=== PATIENT | male | born 1995 | race Caucasian/White ===

== ENCOUNTER 2024-03-03 21:01 | Emergency (ER) | payer OTHER, SELFPAY ==
--- NOTE | 2024-03-03 21:04 | ECG_ITS ---
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
[2024-03-03 21:08] VITALS: BP 137/88; PULSE 79; RESP 17; TEMP 36.6; O2SAT 100; BMI 33.0
[2024-03-03 21:53] LABS: Basophils % 0.4 %; Eosinophils % 0.6 %; Hematocrit 44.8 % (37-53); Lymphocytes # 1.2 10^3/uL (0.8-4.8); Lymphocytes % 23.2 %; Mean Corpuscular HGB Conc 34.4 g/dL (30-55); Mean Corpuscular Hemoglobin 28.7 pg (27-33); Mean Corpuscular Volume 83.6 fl (82-101); Mean Platelet Volume 9.8 fL (7.4-10.4); Monocytes # 0.4 10^3/uL (0.2-0.9); Monocytes % 7.7 %; Neutrophils % 67.9 %; Nucleated Red Blood Cells % 0 %; Platelet Count 283 10^3/cmm (157-399); Red Blood Count 5.36 10^6/uL (3.85-5.65); Red Cell Distribution Width 11.8 % (12.1-15.1)
[2024-03-03 22:16] VITALS: BP 150/102; PULSE 76; RESP 18; O2SAT 97
--- NOTE | 2024-03-03 22:16 | CTR_ITS ---
PROCEDURE INFORMATION: Exam: CT Neck With Contrast Exam date and time: 03/03/2024 10:34 PM Age: 29 years old Clinical indication: Dysphagia / difficulty swallowing; Additional info: Bolus sensation, dysphagia TECHNIQUE: Imaging protocol: Computed tomography of the neck with contrast. Radiation optimization: All CT scans at this facility use at least one of these dose optimization techniques: automated exposure control; mA and/or kV adjustment per patient size (includes targeted exams where dose is matched to clinical indication); or iterative reconstruction. Contrast material: OMNI 350; Contrast volume: 100 ml; Contrast route: INTRAVENOUS (IV); COMPARISON: CT chest w con* [id number] 03/03/2024 10:34 PM RADIATION DOSE METRICS: Total DLP (mGy-cm): 358.4 FINDINGS: Salivary glands: Normal. Glands are normal in size. Pharynx: Unremarkable. No significant tonsillar enlargement. Prevertebral and retropharyngeal spaces: Unremarkable. Larynx: Unremarkable. Epiglottis is normal. Thyroid: Normal. No enlarged or calcified nodules. Trachea: Visualized trachea is unremarkable. Lungs: Unremarkable as visualized. Lymph nodes: Unremarkable. No lymphadenopathy. Bones/joints: Unremarkable. No acute fracture. Soft tissues: Unremarkable. No significant soft tissue swelling. CT/CT neck w con* [id number] IMPRESSION: No acute findings.
--- NOTE | 2024-03-03 22:16 | CTR_ITS ---
PROCEDURE INFORMATION: Exam: CT Chest With Contrast; Diagnostic Exam date and time: 03/03/2024 10:34 PM Age: 29 years old Clinical indication: Dyspnea; Additional info: Bolus sensation, dysphagia TECHNIQUE: Imaging protocol: Diagnostic computed tomography of the chest with contrast. Radiation optimization: All CT scans at this facility use at least one of these dose optimization techniques: automated exposure control; mA and/or kV adjustment per patient size (includes targeted exams where dose is matched to clinical indication); or iterative reconstruction. Contrast material: OMNI 350; Contrast volume: 100 ml; Contrast route: INTRAVENOUS (IV); COMPARISON: CT neck w con* [id number] 03/03/2024 10:34 PM RADIATION DOSE METRICS: Total DLP (mGy-cm): 633.4 FINDINGS: Lungs: Unremarkable. No consolidation. No masses. Pleural spaces: Unremarkable. No pneumothorax. No pleural effusion. Heart: Unremarkable. No cardiomegaly. No pericardial effusion. Lymph nodes: Unremarkable. No enlarged lymph nodes. Vasculature: Unremarkable. No aortic aneurysm. Bones/joints: Unremarkable. No acute fracture. Soft tissues: Unremarkable. CT/CT chest w con* [id number] IMPRESSION: No acute findings.
[2024-03-03 22:18] LABS: D Dimer <= 0.27 ug/mLFEU (0-0.59)
--- NOTE | 2024-03-03 22:21 | ED_ITS ---
HPI - Chest Pain 2 General: Chief Complaint: Chest Pain Stated Complaint: chest pain, under right arm pain Time Seen by Provider: 03/03/24 21:03 History of Present Illness: Patient presents to the ER with chest pain shortness of breath. Sometimes the pain radiates to his back. It is right-sided. Sometimes radiates to his right arm. It is he says it feels like he just cannot catch my breath sometimes. He also reports difficulty swallowing liquid or food. Feels like he gets home and caught in his throat. This been going on for about 4 days. Patient is not ate more than a couple bites of food during this time. Patient was recently seen up at [facility] they worked him up from a chest pain perspective told him he was okay and discharged him. Patient still having the same problems. Related Data Allergies Allergy/AdvReac Type Severity Reaction Status Date / Time fentanyl Allergy Unknown Verified 03/03/24 21:15 Review of Systems 2 General: Reports: 10 or more systems reviewed and unremarkable except in HPI and below Physical Exam 2 Const: COMMON NORMALS: no acute distress, average body habitus, patient oriented x3, no limitations, healthy appearing, alert and well nourished HENMT: COMMON NORMALS: normocephalic, atraumatic, hearing grossly normal bilaterally, external ears normal, Normal external nose present and moist oral mucous membranes HEAD & SCALP: normocephalic and atraumatic NOSE: Normal external nose present EXTERNAL EAR: Yes external ears normal Neck/C-Spine: COMMON NORMALS: full ROM, no lymphadenopathy, supple, no meningeal signs, no JVD and Thyroid normal THYROID: Thyroid normal Chest: COMMONS NORMALS: normal inspection of the chest and normal palpation of entire chest wall Resp: COMMON NORMALS: normal respiratory effort, No retractions, No use of accessory muscles and clear to auscultation bilaterally AUSCULTATION: clear to auscultation bilaterally Cardio: COMMON NORMALS: no JVD, regular rate, regular rhythm, S1 normal heart sound present, S2 normal heart sound present, No gallops present (Cardio), No clicks present (Cardio), No murmurs present (Cardio) and No rub (Cardio) R ATE: regular rate RHYTHM: regular rhythm HEART SOUNDS: S1 normal heart sound present and S2 normal heart sound present GI: COMMON NORMALS: Normal to inspection, nondistended, normoactive bowel sounds present, Soft to palpation, non-tender, No hepatosplenomegaly present and no masses PALPATION: Yes Soft to palpation and Yes No hepatosplenomegaly present Neuro: COMMON NORMALS: patient oriented x3 SENSORIUM/ORIENTATION: Yes alert MENINGEAL SIGNS: Yes no meningeal signs Course 2 Vital Signs: Vital signs: Vital Signs Temperature 98 F 03/03/24 21:08 Pulse Rate 70 03/04/24 00:11 Respiratory Rate 16 03/04/24 00:11 Blood Pressure 134/81 03/04/24 00:11 Pulse Oximetry 95 03/04/24 00:11 Oxygen Delivery Me thod Room Air 03/04/24 00:11 MDM - Chest Pain Medical Decision Making Patient had lab work, EKGs, CT scan with contrast of the neck and chest, all of which were essentially benign. These results were discussed with the patient. Patient be discharged home to follow-up with PCP for further evaluation testing. Medical Records I reviewed the patient's medical records. Lab Data I reviewed the patient's lab results. 03/03/24 21:42 03/03/24 21:[address] 03/03/24 22:16 IMPRESSION: No acute findings. Neck CT 03/03/24 22:16 IMPRESSION: No acute findings. Laboratory Results WBC 5.30 10^3/uL (3.29-11.43) 03/03/24 21:42 RBC 5.36 10^6/uL (3.85-5.65) 03/03/24 21:42 Hgb 15.40 g/dL (11.27-16.99) 03/03/24 21:42 Hct 44.8 % (37-53) 03/03/24 21:42 MCV 83.6 fl (82-101) 03/03/24 21:42 MCH 28.7 pg (27-33) 03/03/24 21:42 MCHC 34.4 g/dL (30-55) 03/03/24 21:42 RDW 11.8 % (12.1-15.1) L 03/03/24 21:42 Plt Count 283 10^3/cmm (157-399) 03/03/24 21:42 MPV 9.8 fL (7.4-10.4) 03/03/24 21:42 Neut % (Auto) 67.9 % 03/03/24 21:42 Lymph % (Auto) 23.2 % 03/03/24 21:42 [place] % (Auto) 7.7 % 03/03/24 21:42 Eos % (Auto) 0.6 % 03/03/24 21:42 Baso % (Auto) 0.4 % 03/03/24 21:42 Neut # (Auto) 3.60 10^3/uL (1.8-7.7) 03/03/24 21:42 Lymph # (Auto) 1.2 10^3/uL (0.8-4.8) 03/03/24 21:42 [place] # (Auto) 0.4 10^3/uL (0.2-0.9) 03/03/24 21:42 Eos # (Auto) 0.0 10^3/uL (0.0-0.8) 03/03/24 21:42 Baso # (Auto) 0.0 10^3/uL (0.0-0.1) 03/03/24 21: Nucleated RBC % (auto) 0 % 03/03/24 21: Nucleated RBCs # 0.0 /100WBC 03/03/24 21:42 D-Dimer <= 0.27 ug/mLFEU (0-0.59) 03/03/24 21:42 Sodium 137 mmol/L (136-145) 03/03/24 21:42 Potassium 4.9 mmol/L (3.5-5.1) 03/03/24 21:42 Chloride 101 mmol/L (98-107) 03/03/24 21:42 Carbon Dioxide 25 mmol/L (22-29) 03/03/24 21:42 Anion Gap 15.9 (5-19) 03/03/24 21:42 BUN 14 mg/dL (6-20) 03/03/24 21:42 Creatinine 0.9 mg/dL (0.7-1.2) 03/03/24 21:42 GFR Calculation 99.1 mL/min (90-130) 03/03/24 21:42 Glucose 90 mg/dL (65-115) 03/03/24 21:42 Calculated Osmolality 284 mOsm/kg (285-295) L 03/03/24 21:42 Calcium 10.1 mg/dL (8.5-10.5) 03/03/24 21:42 Total Bilirubin 0.5 mg/dL (0.15-1.2) 03/03/24 21:42 AST 16 U/L (0-40) 03/03/24 21:42 ALT 25 U/L (0-41) 03/03/24 21:42 Alkaline Phosphatase 84 U/L (40-130) 03/03/24 21:42 Troponin T Baseline < 6 ng/L (0-15) 03/03/24 21:42 Troponin T 120 Minute 6.00 ng/L (0-15) 03/03/24 23:44 Delta Troponin T 0.93567 ABS# (0-10) 03/03/24 23:44 Total Protein 7.7 g/dL (6.6-8.7) 03/03/24 21:42 Albumin 5.1 g/dL (3.5-5.2) 03/03/24 21:42 Globulin 2.6 g/dL (1.3-4.6) 03/03/24 21:42 All radiology interpretation(s) finalized by discharge Discharge Plan Discharge Patient Disposition: Home Clinical Impression: Atypical chest pain, Dysphagia Condition: Stable Discharge Orders: Discharge ED (Routine); Ordered 03/04/24 Ordered By: Juliano Chiu Patient Instructions: Chest Pain - Noncardiac, Dysphagia Activity Restrictions/Additional Instructions: Your evaluation ER did not show any acute cause of your symptomatology. Your chest pain is felt to be noncardiac in nature. The CT scan of your neck and chest did not show any strictures or masses. You may benefit from an EGD for further evaluation treatment. Please follow-up with your family practice physician within the next 7 days to discuss this. Coding Level of Care Code ED Manager Garden for Feliz Kim
[2024-03-03 22:24] LABS: Troponin(5th) Baseline < 6 ng/L (0-15)
[2024-03-03] MEDS: LORazepam 2 mg/mL INJ 1 mL IVP (22:28)
[2024-03-03 22:32] LABS: Alanine Aminotransferase 25 U/L (0-41); Albumin Level 5.1 g/dL (3.5-5.2); Alkaline Phosphatase 84 U/L (40-130); Anion Gap 15.9 (5-19); Aspartate Amino Transferase 16 U/L (0-40); Blood Urea Nitrogen 14 mg/dL (6-20); Calcium 10.1 mg/dL (8.5-10.5); Carbon Dioxide 25 mmol/L (22-29); Chloride 101 mmol/L (98-107); Creatinine Clr Calc Pharmacy 145.1905; Globulin 2.6 g/dL (1.3-4.6); Glomerular Filtration Rate 99.1 mL/min (90-130); Glucose 90 mg/dL (65-115); Osmolality Calculated 284 mOsm/kg (285-295); Potassium 4.9 mmol/L (3.5-5.1); Sodium 137 mmol/L (136-145); Total Bilirubin 0.5 mg/dL (0.15-1.2); Total Protein 7.7 g/dL (6.6-8.7)
[2024-03-03 22:47] VITALS: BP 134/87; PULSE 80; RESP 14; O2SAT 97
[2024-03-03] MEDS: iohexol 350 mg/mL 500 mL Btl (per mL) IV (22:56)
[2024-03-03 23:41] VITALS: BP 147/88; PULSE 71; RESP 18; O2SAT 96
[2024-03-04 00:08] LABS: Troponin 5 2HR Delta 0.00001 ABS# (0-10)
[2024-03-04 00:11] VITALS: BP 134/81; PULSE 70; RESP 16; O2SAT 95
[2024-03-04 00:14] VITALS: BP 134/81; PULSE 65; RESP 16; O2SAT 95
== END 2024-03-04 00:23 | disposition home or self-care (01) ==
PROVIDERS: Emergency Provider Emergency Medicine
DX: R07.89 Other chest pain (principal); R13.10 Dysphagia, unspecified
CPT/HCPCS: 36415; 70491; 71260; 80053; 84484; 85025; 85378; 93005; 96374; 99285; J2060

== ENCOUNTER 2024-03-24 23:34 | Emergency (ER) | payer OTHER, SELFPAY ==
[2024-03-24 23:39] VITALS: BP 136/94; PULSE 71; RESP 14; TEMP 37; O2SAT 98
--- NOTE | 2024-03-24 23:45 | ECG_ITS ---
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 Measurements Intervals [place] Rate: 72 P: 35 WI: 159 QRS: 34 QRSD: 100 T: 12 QT: 372 QTc: 409 Interpretive Statements SINUS RHYTHM Compared to ECG 03/03/2024 21:04:57 T-wave abnormality no longer present Electronically Signed On 03-26-2024 22:00:56 FARMWORKER GRAIN by Jefry Lai M.D. [id number]
== END 2024-03-25 00:52 | disposition left against medical advice (07) ==
LOC: ER 23:40
PROVIDERS: Emergency Provider Family Medicine
DX: Z53.21 Procedure and treatment not carried out due to patient leaving prior to being seen by health care provider (principal)
CPT/HCPCS: 93005

== ENCOUNTER 2024-04-06 05:32 | Emergency (ER) | payer OTHER, SELFPAY ==
[2024-04-06 05:36] VITALS: BP 149/90; PULSE 62; RESP 16; TEMP 37; O2SAT 97; BMI 31.5
--- NOTE | 2024-04-06 05:41 | ED_ITS ---
HPI - General Adult General: Chief complaint: Airway/Esophagus Foreign Body Stated complaint: Something Stuck In Throat Time Seen by Provider: 04/06/24 05:41 Source: patient Mode of arrival: ambulatory Limitations: no limitations History of Present Illness: 29-year-old male states that he was eati ng a pork chop roughly an hour ago he states he feels like he has food stuck in esophagus. He states he is not really able to drink any liquids and states he has a foreign body sensation. He denies having any esophageal food boluses in the past denies any history of strictures she denies any vomiting. States he has been having difficulty swallowing and ingesting foods over the last few months Associated symptoms: Deny chest pain, dyspnea, headache(s), nausea, rash or vomiting Related Data Allergies Allergy/AdvReac Type Severity Reaction Status Date / Time fentanyl Allergy Unknown Verified 03/03/24 21:15 Review of Systems Const: Denies: fever(s), chills, body aches or change in appetite ENMT: Denies: throat pain or dental pain Card: Denies: chest pain Resp: Denies: dyspnea GI: Denies: abdominal pain, nausea, vomiting or diarrhea Musc: Denies: neck pain or back pain Skin/Breast: Denies: rash Neuro: Denies: headache(s) Physical Exam Const: COMMON NORMALS: no acute distress, patient oriented x3 and healthy appearing HENMT: COMMON NORMALS: normocephalic and atraumatic HEAD & SCALP: normocephalic and atraumatic Eye: COMMON NORMALS: conjunctivae normal CONJUNCTIVA: Yes conjunctivae normal Neck/C-Spine: COMMON NORMALS: full ROM and supple Chest: COMMONS NORMALS: normal inspection of the chest Resp: COMMON NORMALS: normal respiratory effort, No retractions, No use of accessory muscles and clear to auscultation bilaterally AUSCULTATION: clear to auscultation bilaterally Cardio: COMMON NORMALS: regular rate, regular rhythm and No murmurs present (Cardio) RATE: regular rate RHYTHM: regular rhythm GI: COMMON NORMALS: non-tender Extremity: COMMON NORMALS: normal to inspection and full ROM Neuro: COMMON NORMALS: patient oriented x3, moves all extremities and no focal motor deficits Psych: COMMON NORMALS: mental status grossly normal, Normal thought process present and cooperative THOUGHT PROCESS: Normal thought process present Skin: COMMON NORMALS: no rashes or lesions noted and no wounds GENERAL SKIN EXAM: no rashes or lesions noted Course Vital Signs: Vital signs: Vital Signs Temperature 98.6 F 04/06/24 05:36 Pulse Rate 62 04/06/24 05:36 Respiratory Rate 16 04/06/24 05:36 Blood Pressure 149/90 04/06/24 05:36 Pulse Oximetry 97 04/06/24 05:36 Oxygen Delivery Me thod Room Air 04/06/24 05:36 MDM - General Adult Medical Decision Making Patient presents here with dysphagia, food bolus sensation. He is able to drink water and a Coke here and feels improved. He has no signs of food impaction. He is handling secretions well chest x-ray is normal we will get him follow-up with surgery likely needs an EGD in the future. Medical Records I reviewed the patient's medical records. All radiology interpretation(s) finalized by discharge ED provider radiology interpretation(s): cxr no acute abnormality Discharge Plan Discharge Patient Disposition: Home Clinical Impression: Difficulty in swallowing Condition: Stable Discharge Orders: Discharge ED (Routine); Ordered 04/06/24 Ordered By: Taniya Salcedo Referrals: Buck Prakash MD [Physician] - 4-7 days Discharge Diet: Advance as tolerated Discharge Activity: Resume usual activity Patient Instructions: Esophageal Foreign Body (ED), Dysphagia (ED) Print Language: Slovak Coding Level of Care Code ED Deputy County Clerk for Feliz Kim
--- NOTE | 2024-04-06 05:58 | XRR_ITS ---
PROCEDURE INFORMATION: Exam: XR Chest Exam date and time: 04/06/2024 5:58 AM Age: 29 years old Clinical indication: Other: Dysphagia with possible food bolus. C/O dysphagia with feeling of something stuck in esophagus since eating dinner yesterday evening. TECHNIQUE: Imaging protocol: Radiologic exam of the chest. Views: 1 view. COMPARISON: CT chest w con* [id number] 03/03/2024 10:34 PM FINDINGS: Lungs: Hypoinflation with bronchovascular crowding. No focal consolidation. Pleural spaces: Unremarkable. No pleural effusion. No pneumothorax. Heart/Mediastinum: No cardiomegaly. Query hiatal hernia, although this is not visualized on recent CT. Bones/joints: Unremarkable. XR/XR chest 1V portable [id number] IMPRESSION: No acute cardiopulmonary findings. Query hiatal hernia, although this is not visualized on recent CT.
[2024-04-06 06:07] VITALS: BP 144/89; PULSE 68; O2SAT 99
== END 2024-04-06 06:08 | disposition home or self-care (01) ==
PROVIDERS: Emergency Provider Emergency Medicine
DX: R13.10 Dysphagia, unspecified (principal)
CPT/HCPCS: 71045; 99283

== ENCOUNTER 2024-04-06 19:44 | Emergency (ER) | payer OTHER, SELFPAY ==
[2024-04-06 19:52] VITALS: BP 140/88; PULSE 67; RESP 18; TEMP 36.7; O2SAT 100; BMI 31.5
--- NOTE | 2024-04-06 20:28 | CTR_ITS ---
PROCEDURE INFORMATION: Exam: CT Neck With Contrast Exam date and time: 04/06/2024 9:07 PM Age: 29 years old Clinical indication: Dysphagia / difficulty swallowing; Additional info: Worsening dysphagia, possible food bolus TECHNIQUE: Imaging protocol: Computed tomography of the neck with contrast. Radiation optimization: All CT scans at this facility use at least one of these dose optimization techniques: automated exposure control; mA and/or kV adjustment per patient size (includes targeted exams where dose is matched to clinical indication); or iterative reconstruction. Contrast material: OMNIPAQUE E350; Contrast volume: 100 ml; Contrast route: INTRAVENOUS (IV); COMPARISON: CT neck w con* [id number] 03/03/2024 10:34 PM RADIATION DOSE METRICS: Total DLP (mGy-cm): 361.76 FINDINGS: Paranasal sinuses: The paranasal sinuses are clear. Mastoid air cells: The mastoid air cells are clear. Salivary glands: Normal. Glands are normal in size. Teeth: Evaluation of the oral cavity is limited by streak artifact from dental hardware. Pharynx: Unremarkable. No significant tonsillar enlargement. Larynx: Unremarkable. Epiglottis is normal. Thyroid: Normal. No enlarged or calcified nodules. Trachea: Visualized trachea is unremarkable. Lungs: Unremarkable as visualized. Lymph nodes: Unremarkable. No lymphadenopathy. Bones/joints: Unremarkable. No acute fracture. Soft tissues: Unremarkable. No significant soft tissue swelling. CT/CT neck w con* [id number] IMPRESSION: No acute abnormality.
--- NOTE | 2024-04-06 20:31 | W.ED.GENADLT ---
HPI - General Adult General: Chief complaint: Airway/Esophagus Foreign Body Stated complaint: Dizzy\Has something in Throat Time Seen by Provider: 04/06/24 20:24 History of Present Illness: Patient returns to the ER with same complaint of feels like something is stuck in his throat. Patient was seen earlier this morning was referred to surgery after having lab work and imaging performed. Patient was able to drink water and soda earlier and felt like it was getting better. Patient stated that it feels like it is getting worse now feels like he has a rock stuck in his throat and water has to go around it to make its way by. Patient does not have any problems with his secretions. Related Data Allergies Allergy/AdvReac Type Severity Reaction Status Date / Time fentanyl Allergy Unknown Verified 03/03/24 21:15 Review of Systems General: Reports: 10 or more systems reviewed and unremarkable except in HPI and below Physical Exam Const: COMMON NORMALS: no acute distress, average body habitus, patient oriented x3, no limitations, healthy appearing, alert and well nourished HENMT: COMMON NORMALS: normocephalic, hearing grossly normal bilaterally, external ears normal, Normal external nose present, moist oral mucous membranes and oropharynx normal HEAD & SCALP: normocephalic NOSE: Normal external nose present EXTERNAL EAR: Yes external ears normal Neck/C-Spine: COMMON NORMALS: full ROM, no lymphadenopathy, supple, no meningeal signs, no JVD and Thyroid normal THYROID: Thyroid normal Chest: COMMONS NORMALS: normal inspection of the chest and normal palpation of entire chest wall Resp: COMMON NORMALS: normal respiratory effort, No retractions, No use of accessory muscles and clear to auscultation bilaterally AUSCULTATION: clear to auscultation bilaterally Cardio: COMMON NORMALS: no JVD, regular rate, regular rhythm, S1 normal heart sound present, S2 normal heart sound present, No gallops present (Cardio), No clicks present (Cardio), No murmurs present (Cardio) and No rub (Cardio) RATE: regular rate RHYTHM: regular rhythm HEART SOUNDS: S1 normal heart sound present and S2 normal heart sound present GI: COMMON NORMALS: Normal to inspection, nondistended, normoactive bowel sounds present, Soft to palpation, non-tender, No hepatosplenomegaly present and no masses PALPATION: Yes Soft to palpation and Yes No hepatosplenomegaly present Neuro: COMMON NORMALS: patient oriented x3 SENSORIUM/ORIENTATION: Yes alert MENINGEAL SIGNS: Yes no meningeal signs Course Vital Signs: Vital signs: Vital Signs Temperature 98.0 F 04/06/24 19:52 Pulse Rate 60 04/06/24 21:00 Respiratory Rate 17 04/06/24 20:33 Blood Pressure 125/77 04/06/24 21:00 Pulse Oximetry 98 04/06/24 21:00 Oxygen Delivery Me thod Room Air 04/06/24 21:00 MDM - General Adult Medical Decision Making Contrasted CT scan of the neck did not show any acute abnormality. This was discussed with the patient. Patient will be discharged and referred back to his PCP. Medical Records I reviewed the patient's medical records. Lab Data I reviewed the patient's lab results. Radiology Impressions Neck CT 04/06/24 20:28 IMPRESSION: No acute abnormality. All radiology interpretation(s) finalized by discharge Discharge Plan Discharge Patient Disposition: Home Clinical Impression: Globus sensation Condition: Stable Discharge Orders: Discharge ED (Routine); Ordered 04/06/24 Ordered By: Juliano Chiu Patient Instructions: Dysphagia Activity Restrictions/Additional Instructions: The CT scan of your neck with contrast did not show any acute abnormality. Please continue to follow-up with your primary care doctor and the surgeon for possible EGD as recommended by the previous ER visit. Print Language: Icelandic Coding Level of Care Code ED Civil Engineering Designer for Feliz Kim
[2024-04-06 20:33] VITALS: BP 157/95; PULSE 61; RESP 17; O2SAT 98
[2024-04-06 21:00] VITALS: BP 125/77; PULSE 60; O2SAT 98
[2024-04-06] MEDS: iohexol 350 mg/mL 500 mL Btl (per mL) IV (21:09)
[2024-04-06 21:30] VITALS: BP 124/74; PULSE 61; RESP 17; O2SAT 99
[2024-04-06 22:00] VITALS: BP 129/83; PULSE 57; O2SAT 99
[2024-04-06 22:37] VITALS: BP 129/83; PULSE 70; O2SAT 100
== END 2024-04-06 22:23 | disposition home or self-care (01) ==
PROVIDERS: Emergency Provider Emergency Medicine
DX: R09.A2 Foreign body sensation, throat (principal)
CPT/HCPCS: 36415; 70491; 99285

== ENCOUNTER 2024-04-09 10:47 | Day surgery (SDC) | payer OTHER, SELFPAY ==
[2024-04-09 11:09] VITALS: BMI 31.5
[2024-04-09 11:10] VITALS: BP 142/82; PULSE 66; RESP 18; TEMP 36.1; O2SAT 97
--- NOTE | 2024-04-09 11:21 | P.HPUD_ITS ---
Surgery/Procedure H&P Update DATE OF PROCEDURE: April 09, 2024 DATE H&P PERFORMED: 04/07/24 H&P UPDATE INFORMATION: I have reviewed H&P completed within last 30 days, I have examined patient prior to procedure, No changes to prior documentation and H&P is in [facility] on date indicated PLANNED PROCEDURE: Operation Date: 04/09/24 12:25 Proposed Procedures p EGD/BALLOON DILATION(Not Applicable) - Mahad Morris MD
--- NOTE | 2024-04-09 12:53 | ANES.PREANE2 ---
Pre-Anesthetic Assessment Height/Weight: Height 1.78 m Weight 99.79 kg Preop Diagnosis: dysphagia Operation Date: 04/09/24 12:25 Proposed Procedures p EGD/BALLOON DILATION(Not Applicable) - Mahad Morris MD Familial anesthetic complications: none Was Beta Jodie taken within 24 hours: N/A Was Clonidine taken within 24 hours: N/A Last intake: Intake Last Liquid Date 04/08/24 Last Liquid Time 23:50 Last Solid Date 04/08/24 Last Solid Time 22:00 Social Tobacco and No alcohol had a callie nicotine pouch at 11. will wait until 1300 to procede. Exam alert and oriented x 3 Airway Submandibular: within normal limits Cervical ROM: within normal limits Mallampati: Class I Dentition: full Pulmonary None reported CV/HEM pt states he has 24/7 chest pain, rates it at 1/10. no other symptoms, multiple EKGs, has stress test scheduled. None reported Hepatic None reported GI Gastroesophageal Reflux Disease ( i have no idea ) Metabolic None reported Musc/skel None reported Neuropsych None reported Anesthetic Plan ASA status: 2 Anesthesia: Anesthesia Evaluation and MAC Medications/Allergies Home Medications ?Medication ?Instructions ?Recorded ?Confirmed ?Last Taken ?Type No Known Home Medications 04/07/24 04/09/24 Unknown History Allergies Allergy/AdvReac Type Severity Reaction Status Date / Time fentanyl Allergy Unknown Verified 04/07/24 08:54 [facility] Anesthesia Social History (Updated 04/07/24 @ 08:59 by ROBBIE Sena) Smoking and tobacco/nicotine status: current every day tobacco/nicotine user (chewing tob) smokeless tobacco Smokeless tobacco user: chewing tobacco Alcohol intake: current Alcohol intake frequency: few times a month Data Anesthesia Cardiac Studies: No Data to Display
--- NOTE | 2024-04-09 13:05 | PM.MISC ---
Miscellaneous Note Purpose of Documentation: Update on patient care Note: Patient has decided that he will not like to proceed with EGD and possible balloon dilation and is he does not want to receive any kind of anesthesia. I have informed him that we will remain available to do the procedure in the future.
--- NOTE | 2024-04-09 13:09 | ANES.PROC ---
Anesthesia Procedures Procedure/Date: 04/09/24 EGD aborted in procedure room by patient, patient didnt want to be put to sleep.
--- NOTE | 2024-04-09 13:15 | ANE.PACU2 ---
Inpatient post-anesthesia follow up: Airway intact: Yes Vital signs: Temperature 97.0 F Pulse Rate 66 Respiratory Rate 18 Blood Pressure 142/82 Pulse Oximetry 97 Oxygen Delivery Me thod Room Air Oxygen Flow Rate Fraction of Inspir ed Oxygen Hydration adequate: Yes Nausea and vomiting: No Pain level: 1 Mental status: Baseline
--- NOTE | 2024-04-09 13:16 | PC.NURSE ---
1302-PT DECIDED AFTER HE WAS IN THE PROCEDURE ROOM AND HOOKED UP TO EVERYTHING THAT HE DID NOT WANT TO BE PUT TO SLEEP. WE HAD DONE THE TIME OUT AND THE BITE BLOCK AND O2 WERE APPLIED. THEN THE PT SAID THAT HE COULD NOT DO IT.
--- NOTE | 2024-04-09 14:00 | SUR.PHASEII ---
1315-Pt back into room that he got ready in after deciding that he did not want to be put to sleep in the procedure room. I took his IV out. There were no discharge instructions given by the physician, although Dr Morris did talk to him about a swallow study and said that he could see an ENT physician. Pt left at 1315 with spouse.
== END 2024-04-09 13:15 | disposition home or self-care (01) ==
PROVIDERS: Visit Provider Surgery
DX: R13.10 Dysphagia, unspecified (principal); F17.220 Nicotine dependence, chewing tobacco, uncomplicated; Z88.5 Allergy status to narcotic agent; Z53.29 Procedure and treatment not carried out because of patient's decision for other reasons
CPT/HCPCS: J2704

== ENCOUNTER 2024-08-03 00:06 | Emergency (ER) | payer OTHER, SELFPAY ==
[2024-08-03] VITALS (18 sets, daily range): BP systolic 133–155; BP diastolic 79–109; PULSE 77–126; RESP 15–24; TEMP 36.8; O2SAT 83–100; BMI 27.4
--- NOTE | 2024-08-03 00:57 | ED_ITS ---
Documented by User: MICHELLE Admas 08/03/24 01:45 HPI - Arrhythmia/Palpitations 2 General: Chief Complaint: Arrhythmia/Palpitations Stated Complaint: Rapid HeartBeat Time Seen by Provider: 08/03/24 00:34 History of Present Illness: Patient is a 29-year-old male that was at [place] earlier today, had antibiotic, and tetanus shot. He presents back to this ER due to palpitations, mainly upon standing. He does have association lightheadedness, dizziness. He states he has had 1.5 L of fluid intake today, however typically has 1 gallon a day. He has a history of elevation of blood pressure, and treated. No fevers. Patient thought his palpitations were due to side effect from his tetanus and/or unknown antibiotic that he was given at [place]. Associated symptoms: Deny anxiety, nausea or vomiting Related Data Previous Rx's ?Medication ?Instructions ?Recorded metoprolol tartrate 25 mg tablet 25 mg PO BID #60 tabs 08/03/24 Allergies Allergy/AdvReac Type Severity Reaction Status Date / Time No Known Allergies Allergy Verified 08/03/24 00:20 Review of Systems 2 Const: Denies: fever(s) or chills Card: Reports: palpitations and irregular heart rhythm; Denies: chest pain Resp: Denies: dyspnea or productive cough GI: Denies: abdominal pain, nausea or vomiting : Denies: flank pain or difficulty urinating Musc: Denies: neck pain or back pain Neuro: Denies: headache(s) or numbness in extremities Psych: Denies: anxiety or depression Ez/Lymph: Denies: easy bruising or easy bleeding PFS ED 2 PFSH: Social History (Updated 04/07/24 @ 08:59 by ROBBIE Sena) Smoking and tobacco/nicotine status: current every day tobacco/nicotine user (chewing tob) smokeless tobacco Smokeless tobacco user: chewing tobacco Alcohol intake: current Alcohol intake frequency: few times a month Physical Exam 2 Const: COMMON NORMALS: no acute distress and patient oriented x3 GENERAL APPEARANCE: cooperative HENMT: COMMON NORMALS: normocephalic HEAD & SCALP: normocephalic Lymph: LYMPHATIC: no lymphadenopathy noted Chest: COMMONS NORMALS: normal inspection of the chest and normal palpation of entire chest wall Resp: COMMON NORMALS: normal respiratory effort EFFORT & INSPECTION: Yes able to speak in complete sentences Cardio: COMMON NORMALS: regular rate and regular rhythm RATE: regular rate RHYTHM: regular rhythm GI: COMMON NORMALS: Normal to inspection, nondistended, normoactive bowel sounds present and Soft to palpation PALPATION: Yes Soft to palpation Extremity: COMMON NORMALS: normal to inspection, full ROM and capillary refill normal Neuro: COMMON NORMALS: patient oriented x3 Course 2 Vital Signs: Vital signs: Vital Signs Temperature 98.2 F 08/03/24 00:12 Pulse Rate 85 08/03/24 04:00 Respiratory Rate 18 08/03/24 04:00 Blood Pressure 140/99 08/03/24 04:45 Pulse Oximetry 89 L 08/03/24 04:00 Oxygen Delivery Me thod Room Air 08/03/24 00:12 MDM - Arrhythmia/Palpitations Medical Decision Making Patient is a 29-year-old male with association of palpitations after tetanus, and antibiotics. Unsure this is related to current symptoms. Does not appear to be allergic in nature. Differential includes dehydration, POTS, arrhythmia, cardiac anomaly. Patient initially refused EKG. Now EKG has been approved by patient after explanation. When patient elevated on orthostatic blood pressure, his heart rate increased to the 120s. EKG shows ossific abnormalities with inverted T waves, sinus tachycardia, biphasic P wave in V1 noted as well with right axis Patient is 29-year-old gentleman with palpitations, abnormal EKG. He also relates on reevaluation he is lost 38 pounds. He viewed blood work at [place] that included troponins that were negative, chest x-ray that was negative, and WBC that was 4. Patient then admits to areas in his mouth with bruising. I evaluated the inside of his entire oral palate, and do not appreciate any telangiectasias, blood vessel breaking/ecchymosis. Signed out plan / labs pending to Dr. Malik Lab Data 08/03/24 01:45 08/03/24 01:45 Laboratory Results WBC 5.32 10^3/uL (3.29-11.43) 08/03/24 01:45 RBC 5.68 10^6/uL (3.85-5.65) H 08/03/24 01:45 Hgb 16.50 g/dL (11.27-16.99) 08/03/24 01:45 Hct 47.8 % (37-53) 08/03/24 01:45 MCV 84.2 fl (82-101) 08/03/24 01:45 MCH 29.0 pg (27-33) 08/03/24 01:45 MCHC 34.5 g/dL (30-55) 08/03/24 01:45 RDW 11.9 % (12.1-15.1) L 08/03/24 01:45 Plt Count 312 10^3/cmm (157-399) 08/03/24 01:45 MPV 10.2 fL (7.4-10.4) 08/03/24 01:45 Neut % (Auto) 88.0 % 08/03/24 01:45 Lymph % (Auto) 10.5 % 08/03/24 01:45 [place] % (Auto) 0.9 % 08/03/24 01:45 Eos % (Auto) 0.0 % 08/03/24 01:45 Baso % (Auto) 0.0 % 08/03/24 01:45 Neut # (Auto) 4.68 10^3/uL (1.8-7.7) 08/03/24 01:45 Lymph # (Auto) 0.6 10^3/uL (0.8-4.8) L 08/03/24 01:45 [place] # (Auto) 0.1 10^3/uL (0.2-0.9) L 08/03/24 01:45 Eos # (Auto) 0.0 10^3/uL (0.0-0.8) 08/03/24 01:45 Baso # (Auto) 0.0 10^3/uL (0.0-0.1) 08/03/24 01:45 Nucleated RBC % (auto) 0 % 08/03/24 01:45 Nucleated RBCs # 0.0 /100WBC 08/03/24 01:45 Sodium 142 mmol/L (136-145) 08/03/24 01:45 Potassium 3.8 mmol/L (3.5-5.1) 08/03/24 01:45 Chloride 103 mmol/L (98-107) 08/03/24 01:45 Carbon Dioxide 23 mmol/L (22-29) 08/03/24 01:45 Anion Gap 19.8 (5-19) H 08/03/24 01:45 BUN 9 mg/dL (6-20) 08/03/24 01:45 Creatinine 0.7 mg/dL (0.7-1.2) 08/03/24 01:45 GFR Calculation 132.4 mL/min (90-130) H 08/03/24 01:45 Glucose 104 mg/dL (65-115) 08/03/24 01:45 Calculated Osmolality 293 mOsm/kg (285-295) 08/03/24 01:45 Calcium 10.4 mg/dL (8.5-10.5) 08/03/24 01:45 Magnesium 2.3 mg/dL (1.7-2.3) 08/03/24 01:45 Total Bilirubin 0.5 mg/dL (0.15-1.2) 08/03/24 01:45 AST 18 U/L (0-40) 08/03/24 01:45 ALT 27 U/L (0-41) 08/03/24 01:45 Alkaline Phosphatase 88 U/L (40-130) 08/03/24 01:45 Total Protein 9.0 g/dL (6.6-8.7) H 08/03/24 01:45 Albumin 5.3 g/dL (3.5-5.2) H 08/03/24 01:45 Globulin 3.7 g/dL (1.3-4.6) 08/03/24 01:45 TSH 0.40 uIU/mL (0.27-4.20) 08/03/24 01:45 Urine Opiates Screen Negative ng/mL (Negative) 08/03/24 01:35 Ur Barbiturates Screen Negative ng/mL (Negative) 08/03/24 01:35 Ur Phencyclidine Scrn Negative ng/mL (Negative) 08/03/24 01:35 Ur Amphetamines Screen Negative ng/mL (Negative) 08/03/24 01:35 U Benzodiazepines Scrn Negative ng/mL (Negative) 08/03/24 01:35 Urine Cocaine Screen Negative ng/mL (Negative) 08/03/24 01:35 U Marijuana (THC) Screen Negative ng/mL (Negative) 08/03/24 01:35 All radiology interpretation(s) finalized by discharge EKG Data EKG 1: Interpretation: Sinus tachycardia, nonspecific ST segment changes with inverted T waves, right axis, biphasic P wave V1 EKG 2: Interpretation: Normal axis, sinus tachycardia, nonspecific ST segment pattern Discharge Plan Discharge Patient Disposition: Home Clinical Impression: Sinus tachycardia, Palpitations Condition: Stable Prescriptions: New metoprolol tartrate 25 mg tablet 25 mg PO BID Qty: 60 0RF Discharge Orders: Discharge ED (Routine); Ordered 08/03/24 Ordered By: Duy Malik Discharge Diet: Usual diet Discharge Activity: Resume usual activity Patient Instructions: Tachycardia (ED) Activity Restrictions/Additional Instructions: No caffeine, no energy drinks Continue appropriate hydration Follow-up with your primary care physician regarding today's visit If your heart rate remains elevated at home, consider taking the medication prescribed. Case management will contact you regarding a heart rate monitor, and follow-up with cardiology. Return for any worsening symptoms despite treatment. Print Language: Kyrgyz Coding Level of Care Code ED Ichthyologist for Chg Fwd A&P Assessment & Plan Medications: New 2 metoprolol tartrate 25 mg PO BID 60 tabs 0RF Discharge Data Studies Completed and Pending Pending at discharge Category Date Time Status CBC Auto Diff [Complete Blood Count w/Auto] Stat Lab 08/03/24 01:11 Ordered CMP [Comprehensive Metabolic Panel] Stat Lab 08/03/24 01:11 Ordered Drug Screen, Urine Stat Lab 08/03/24 01:35 Received Magnesium Stat Lab 08/03/24 01:11 Ordered TSH [Thyroid Stimulating Hormone] Stat Lab 08/03/24 01:11 Ordered Signed out to Dr. Malik Laboratory Results WBC 5.32 10^3/uL (3.29-11.43) 08/03/24 01:45 RBC 5.68 10^6/uL (3.85-5.65) H 08/03/24 01:45 Hgb 16.50 g/dL (11.27-16.99) 08/03/24 01:45 Hct 47.8 % (37-53) 08/03/24 01:45 MCV 84.2 fl (82-101) 08/03/24 01:45 MCH 29.0 pg (27-33) 08/03/24 01:45 MCHC 34.5 g/dL (30-55) 08/03/24 01:45 RDW 11.9 % (12.1-15.1) L 08/03/24 01:45 Plt Count 312 10^3/cmm (157-399) 08/03/24 01:45 MPV 10.2 fL (7.4-10.4) 08/03/24 01:45 Neut % (Auto) 88.0 % 08/03/24 01:45 Lymph % (Auto) 10.5 % 08/03/24 01:45 [place] % (Auto) 0.9 % 08/03/24 01:45 Eos % (Auto) 0.0 % 08/03/24 01:45 Baso % (Auto) 0.0 % 08/03/24 01:45 Neut # (Auto) 4.68 10^3/uL (1.8-7.7) 08/03/24 01:45 Lymph # (Auto) 0.6 10^3/uL (0.8-4.8) L 08/03/24 01:45 [place] # (Auto) 0.1 10^3/uL (0.2-0.9) L 08/03/24 01:45 Eos # (Auto) 0.0 10^3/uL (0.0-0.8) 08/03/24 01:45 Baso # (Auto) 0.0 10^3/uL (0.0-0.1) 08/03/24 01:45 Nucleated RBC % (auto) 0 % 08/03/24 01:45 Nucleated RBCs # 0.0 /100WBC 08/03/24 01:45 Sodium 142 mmol/L (136-145) 08/03/24 01:45 Potassium 3.8 mmol/L (3.5-5.1) 08/03/24 01:45 Chloride 103 mmol/L (98-107) 08/03/24 01:45 Carbon Dioxide 23 mmol/L (22-29) 08/03/24 01:45 Anion Gap 19.8 (5-19) H 08/03/24 01:45 BUN 9 mg/dL (6-20) 08/03/24 01:45 Creatinine 0.7 mg/dL (0.7-1.2) 08/03/24 01:45 GFR Calculation 132.4 mL/min (90-130) H 08/03/24 01:45 Glucose 104 mg/dL (65-115) 08/03/24 01:45 Calculated Osmolality 293 mOsm/kg (285-295) 08/03/24 01:45 Calcium 10.4 mg/dL (8.5-10.5) 08/03/24 01:45 Magnesium 2.3 mg/dL (1.7-2.3) 08/03/24 01:45 Total Bilirubin 0.5 mg/dL (0.15-1.2) 08/03/24 01:45 AST 18 U/L (0-40) 08/03/24 01:45 ALT 27 U/L (0-41) 08/03/24 01:45 Alkaline Phosphatase 88 U/L (40-130) 08/03/24 01:45 Total Protein 9.0 g/dL (6.6-8.7) H 08/03/24 01:45 Albumin 5.3 g/dL (3.5-5.2) H 08/03/24 01:45 Globulin 3.7 g/dL (1.3-4.6) 08/03/24 01:45 TSH 0.40 uIU/mL (0.27-4.20) 08/03/24 01:45 Urine Opiates Screen Negative ng/mL (Negative) 08/03/24 01:35 Ur Barbiturates Screen Negative ng/mL (Negative) 08/03/24 01:35 Ur Phencyclidine Scrn Negative ng/mL (Negative) 08/03/24 01:35 Ur Amphetamines Screen Negative ng/mL (Negative) 08/03/24 01:35 U Benzodiazepines Scrn Negative ng/mL (Negative) 08/03/24 01:35 Urine Cocaine Screen Negative ng/mL (Negative) 08/03/24 01:35 U Marijuana (THC) Screen Negative ng/mL (Negative) 08/03/24 01:35 Vitals Last Vital Signs Temp 98.2 F 08/03/24 00:12 Pulse 85 08/03/24 04:00 Resp 18 08/03/24 04:00 BP 140/99 08/03/24 04:45 Pulse Ox 89 L 08/03/24 04:00 O2 Del Method Room Air 08/03/24 00:12 Documented by User: Duy Malik DO 08/03/24 05:24 HPI - Arrhythmia/Palpitations 2 General: Chief Complaint: Arrhythmia/Palpitations Stated Complaint: Rapid HeartBeat Time Seen by Provider: 08/03/24 00:34 Related Data Previous Rx's ?Medication ?Instructions ?Recorded metoprolol tartrate 25 mg tablet 25 mg PO BID #60 tabs 08/03/24 Allergies Allergy/AdvReac Type Severity Reaction Status Date / Time No Known Allergies Allergy Verified 08/03/24 00:20 PFS ED 2 PFSH: Social History (Updated 04/07/24 @ 08:59 by ROBBIE Sena) Smoking and tobacco/nicotine status: current every day tobacco/nicotine user (chewing tob) smokeless tobacco Smokeless tobacco user: chewing tobacco Alcohol intake: current Alcohol intake frequency: few times a month Course 2 Vital Signs: Vital signs: Vital Signs Temperature 98.2 F 08/03/24 00:12 Pulse Rate 85 08/03/24 04:00 Respiratory Rate 18 08/03/24 04:00 Blood Pressure 140/99 08/03/24 04:45 Pulse Oximetry 89 L 08/03/24 04:00 Oxygen Delivery Me thod Room Air 08/03/24 00:12 MDM - Arrhythmia/Palpitations Medical Decision Making Patient is a 29-year-old male with association of palpitations after tetanus, and antibiotics. Unsure this is related to current symptoms. Does not appear to be allergic in nature. Differential includes dehydration, POTS, arrhythmia, cardiac anomaly. Patient initially refused EKG. Now EKG has been approved by patient after explanation. When patient elevated on orthostatic blood pressure, his heart rate increased to the 120s. EKG shows ossific abnormalities with inverted T waves, sinus tachycardia, biphasic P wave in V1 noted as well with right axis Patient is 29-year-old gentleman with palpitations, abnormal EKG. He also relates on reevaluation he is lost 38 pounds. He viewed blood work at [place] that included troponins that were negative, chest x-ray that was negative, and WBC that was 4. Patient then admits to areas in his mouth with bruising. I evaluated the inside of his entire oral palate, and do not appreciate any telangiectasias, blood vessel breaking/ecchymosis. Signed out plan / labs pending to Dr. Malik Laboratory benign. Urine drug screen negative. The patient has been mildly tachycardic, but this improved on its own. He walked in the ER, was somewhat dizzy, but this resolved on returning to sitting position. He was given oral metoprolol for heart rate reduction. His TSH is normal, although low normal. He has been referred to cardiology services for Holter monitor. He will continue metoprolol for if his heart rate stays elevated. Return for any new or worsening symptoms in the meantime. Primary care outpatient follow-up. Lab Data 08/03/24 01:45 08/03/24 01:45 Laboratory Results WBC 5.32 10^3/uL (3.29-11.43) 08/03/24 01:45 RBC 5.68 10^6/uL (3.85-5.65) H 08/03/24 01:45 Hgb 16.50 g/dL (11.27-16.99) 08/03/24 01:45 Hct 47.8 % (37-53) 08/03/24 01:45 MCV 84.2 fl (82-101) 08/03/24 01:45 MCH 29.0 pg (27-33) 08/03/24 01:45 MCHC 34.5 g/dL (30-55) 08/03/24 01:45 RDW 11.9 % (12.1-15.1) L 08/03/24 01:45 Plt Count 312 10^3/cmm (157-399) 08/03/24 01:45 MPV 10.2 fL (7.4-10.4) 08/03/24 01:45 Neut % (Auto) 88.0 % 08/03/24 01:45 Lymph % (Auto) 10.5 % 08/03/24 01:45 [place] % (Auto) 0.9 % 08/03/24 01:45 Eos % (Auto) 0.0 % 08/03/24 01:45 Baso % (Auto) 0.0 % 08/03/24 01:45 Neut # (Auto) 4.68 10^3/uL (1.8-7.7) 08/03/24 01:45 Lymph # (Auto) 0.6 10^3/uL (0.8-4.8) L 08/03/24 01:45 [place] # (Auto) 0.1 10^3/uL (0.2-0.9) L 08/03/24 01:45 Eos # (Auto) 0.0 10^3/uL (0.0-0.8) 08/03/24 01:45 Baso # (Auto) 0.0 10^3/uL (0.0-0.1) 08/03/24 01:45 Nucleated RBC % (auto) 0 % 08/03/24 01:45 Nucleated RBCs # 0.0 /100WBC 08/03/24 01:45 Sodium 142 mmol/L (136-145) 08/03/24 01:45 Potassium 3.8 mmol/L (3.5-5.1) 08/03/24 01:45 Chloride 103 mmol/L (98-107) 08/03/24 01:45 Carbon Dioxide 23 mmol/L (22-29) 08/03/24 01:45 Anion Gap 19.8 (5-19) H 08/03/24 01:45 BUN 9 mg/dL (6-20) 08/03/24 01:45 Creatinine 0.7 mg/dL (0.7-1.2) 08/03/24 01:45 GFR Calculation 132.4 mL/min (90-130) H 08/03/24 01:45 Glucose 104 mg/dL (65-115) 08/03/24 01:45 Calculated Osmolality 293 mOsm/kg (285-295) 08/03/24 01:45 Calcium 10.4 mg/dL (8.5-10.5) 08/03/24 01:45 Magnesium 2.3 mg/dL (1.7-2.3) 08/03/24 01:45 Total Bilirubin 0.5 mg/dL (0.15-1.2) 08/03/24 01:45 AST 18 U/L (0-40) 08/03/24 01:45 ALT 27 U/L (0-41) 08/03/24 01:45 Alkaline Phosphatase 88 U/L (40-130) 08/03/24 01:45 Total Protein 9.0 g/dL (6.6-8.7) H 08/03/24 01:45 Albumin 5.3 g/dL (3.5-5.2) H 08/03/24 01:45 Globulin 3.7 g/dL (1.3-4.6) 08/03/24 01:45 TSH 0.40 uIU/mL (0.27-4.20) 08/03/24 01:45 Urine Opiates Screen Negative ng/mL (Negative) 08/03/24 01:35 Ur Barbiturates Screen Negative ng/mL (Negative) 08/03/24 01:35 Ur Phencyclidine Scrn Negative ng/mL (Negative) 08/03/24 01:35 Ur Amphetamines Screen Negative ng/mL (Negative) 08/03/24 01:35 U Benzodiazepines Scrn Negative ng/mL (Negative) 08/03/24 01:35 Urine Cocaine Screen Negative ng/mL (Negative) 08/03/24 01:35 U Marijuana (THC) Screen Negative ng/mL (Negative) 08/03/24 01:35 Discharge Plan Discharge Patient Disposition: Home Clinical Impression: Sinus tachycardia, Palpitations Condition: Stable Prescriptions: New metoprolol tartrate 25 mg tablet 25 mg PO BID Qty: 60 0RF Discharge Orders: Discharge ED (Routine); Ordered 08/03/24 Ordered By: Duy Malik Discharge Diet: Usual diet Discharge Activity: Resume usual activity Patient Instructions: Tachycardia (ED) Activity Restrictions/Additional Instructions: No caffeine, no energy drinks Continue appropriate hydration Follow-up with your primary care physician regarding today's visit If your heart rate remains elevated at home, consider taking the medication prescribed. Case management will contact you regarding a heart rate monitor, and follow-up with cardiology. Return for any worsening symptoms despite treatment. Print Language: Kyrgyz Coding Level of Care Code ED Ichthyologist for Feliz Fwjeanna A&P Assessment & Plan Medications: New 2 metoprolol tartrate 25 mg PO BID 60 tabs 0RF Discharge Data Studies Completed and Pending Pending at discharge Category Date Time Status CBC Auto Diff [Complete Blood Count w/Auto] Stat Lab 08/03/24 01:11 Ordered CMP [Comprehensive Metabolic Panel] Stat Lab 08/03/24 01:11 Ordered Drug Screen, Urine Stat Lab 08/03/24 01:35 Received Magnesium Stat Lab 08/03/24 01:11 Ordered TSH [Thyroid Stimulating Hormone] Stat Lab 08/03/24 01:11 Ordered Laboratory Results WBC 5.32 10^3/uL (3.29-11.43) 08/03/24 01:45 RBC 5.68 10^6/uL (3.85-5.65) H 08/03/24 01:45 Hgb 16.50 g/dL (11.27-16.99) 08/03/24 01:45 Hct 47.8 % (37-53) 08/03/24 01:45 MCV 84.2 fl (82-101) 08/03/24 01:45 MCH 29.0 pg (27-33) 08/03/24 01:45 MCHC 34.5 g/dL (30-55) 08/03/24 01:45 RDW 11.9 % (12.1-15.1) L 08/03/24 01:45 Plt Count 312 10^3/cmm (157-399) 08/03/24 01:45 MPV 10.2 fL (7.4-10.4) 08/03/24 01:45 Neut % (Auto) 88.0 % 08/03/24 01:45 Lymph % (Auto) 10.5 % 08/03/24 01:45 [place] % (Auto) 0.9 % 08/03/24 01:45 Eos % (Auto) 0.0 % 08/03/24 01:45 Baso % (Auto) 0.0 % 08/03/24 01:45 Neut # (Auto) 4.68 10^3/uL (1.8-7.7) 08/03/24 01:45 Lymph # (Auto) 0.6 10^3/uL (0.8-4.8) L 08/03/24 01:45 [place] # (Auto) 0.1 10^3/uL (0.2-0.9) L 08/03/24 01:45 Eos # (Auto) 0.0 10^3/uL (0.0-0.8) 08/03/24 01:45 Baso # (Auto) 0.0 10^3/uL (0.0-0.1) 08/03/24 01:45 Nucleated RBC % (auto) 0 % 08/03/24 01:45 Nucleated RBCs # 0.0 /100WBC 08/03/24 01:45 Sodium 142 mmol/L (136-145) 08/03/24 01:45 Potassium 3.8 mmol/L (3.5-5.1) 08/03/24 01:45 Chloride 103 mmol/L (98-107) 08/03/24 01:45 Carbon Dioxide 23 mmol/L (22-29) 08/03/24 01:45 Anion Gap 19.8 (5-19) H 08/03/24 01:45 BUN 9 mg/dL (6-20) 08/03/24 01:45 Creatinine 0.7 mg/dL (0.7-1.2) 08/03/24 01:45 GFR Calculation 132.4 mL/min (90-130) H 08/03/24 01:45 Glucose 104 mg/dL (65-115) 08/03/24 01:45 Calculated Osmolality 293 mOsm/kg (285-295) 08/03/24 01:45 Calcium 10.4 mg/dL (8.5-10.5) 08/03/24 01:45 Magnesium 2.3 mg/dL (1.7-2.3) 08/03/24 01:45 Total Bilirubin 0.5 mg/dL (0.15-1.2) 08/03/24 01:45 AST 18 U/L (0-40) 08/03/24 01:45 ALT 27 U/L (0-41) 08/03/24 01:45 Alkaline Phosphatase 88 U/L (40-130) 08/03/24 01:45 Total Protein 9.0 g/dL (6.6-8.7) H 08/03/24 01:45 Albumin 5.3 g/dL (3.5-5.2) H 08/03/24 01:45 Globulin 3.7 g/dL (1.3-4.6) 08/03/24 01:45 TSH 0.40 uIU/mL (0.27-4.20) 08/03/24 01:45 Urine Opiates Screen Negative ng/mL (Negative) 08/03/24 01:35 Ur Barbiturates Screen Negative ng/mL (Negative) 08/03/24 01:35 Ur Phencyclidine Scrn Negative ng/mL (Negative) 08/03/24 01:35 Ur Amphetamines Screen Negative ng/mL (Negative) 08/03/24 01:35 U Benzodiazepines Scrn Negative ng/mL (Negative) 08/03/24 01:35 Urine Cocaine Screen Negative ng/mL (Negative) 08/03/24 01:35 U Marijuana (THC) Screen Negative ng/mL (Negative) 08/03/24 01:35 Vitals Last Vital Signs Temp 98.2 F 08/03/24 00:12 Pulse 85 08/03/24 04:00 Resp 18 08/03/24 04:00 BP 140/99 08/03/24 04:45 Pulse Ox 89 L 08/03/24 04:00 O2 Del Method Room Air 08/03/24 00:12
--- NOTE | 2024-08-03 00:57 | ECG_ITS ---
[facility] [place] [facility] Date: 2024-08-03 Pat Name: Janes Patten Department: Room: Gender: Male Log Turner: : 1995 Requested By: Cynthia Beck Order Number: [id number] Gregory MD: Deyanira Bender M.D. Measurements Intervals [place] Rate: 141 P: 76 PA: 123 QRS: 83 QRSD: 90 T: 58 QT: 328 QTc: 503 Interpretive Statements SINUS TACHYCARDIA, POSSIBLE ATRIAL FLUTTER NONSPECIFIC ST & T-WAVE ABNORMALITY ABNORMAL RHYTHM ECG Compared to ECG 03/24/2024 23:45:37 T-wave abnormality now present Sinus rhythm no longer present Electronically Signed On 08-03-2024 21:58:41 CDT by Deyanira Bender M.D. [id number]
--- NOTE | 2024-08-03 01:00 | ECG_ITS ---
[facility] Test Date: 2024-08-03 Pat Name: Janes Patten Department: Room: Gender: Male [employer] Consultant: : 1995 Requested By: Cynthia Beck Order Number: [id number] Gregory MD: Deyanira Bender M.D. Measurements Intervals [place] Rate: 103 P: 67 MT: 151 QRS: 68 QRSD: 114 T: 23 QT: 353 QTc: 464 Interpretive Statements SINUS TACHYCARDIA MODERATE INTRAVENTRICULAR CONDUCTION DELAY [110+ ms QRS DURATION] NONSPECIFIC T-WAVE ABNORMALITY ABNORMAL RHYTHM ECG Compared to ECG 03/24/2024 23:45:37 Intraventricular conduction delay now present T-wave abnormality now present Sinus rhythm no longer present Electronically Signed On 08-03-2024 21:58:10 CDT by Deyanira Bender M.D. [id number]
[2024-08-03 01:54] LABS: Amphetamines Screen Urine Negative (Negative); Barbiturates Screen Urine Negative (Negative); Benzodiazepines Screen Urine Negative (Negative); Cocaine Screen Urine Negative (Negative); Opiate Screen Urine Negative (Negative); PCP Screen Urine Negative (Negative); THC Screen Urine Negative (Negative)
[2024-08-03 01:57] LABS: Hematocrit 47.8 % (37-53); Lymphocytes # 0.6 10^3/uL (0.8-4.8); Lymphocytes % 10.5 %; Mean Corpuscular HGB Conc 34.5 g/dL (30-55); Mean Corpuscular Volume 84.2 fl (82-101); Mean Platelet Volume 10.2 fL (7.4-10.4); Monocytes # 0.1 10^3/uL (0.2-0.9); Monocytes % 0.9 %; Neutrophils # 4.68 10^3/uL (1.8-7.7); Nucleated Red Blood Cells % 0 %; Platelet Count 312 10^3/cmm (157-399); Red Blood Count 5.68 10^6/uL (3.85-5.65); Red Cell Distribution Width 11.9 % (12.1-15.1); White Blood Count 5.32 10^3/uL (3.29-11.43)
[2024-08-03 02:18] LABS: Alanine Aminotransferase 27 U/L (0-41); Albumin Level 5.3 g/dL (3.5-5.2); Alkaline Phosphatase 88 U/L (40-130); Anion Gap 19.8 (5-19); Aspartate Amino Transferase 18 U/L (0-40); Blood Urea Nitrogen 9 mg/dL (6-20); Calcium 10.4 mg/dL (8.5-10.5); Carbon Dioxide 23 mmol/L (22-29); Chloride 103 mmol/L (98-107); Creatinine Clr Calc Pharmacy 176.6181; Globulin 3.7 g/dL (1.3-4.6); Glomerular Filtration Rate 132.4 mL/min (90-130); Glucose 104 mg/dL (65-115); Magnesium 2.3 mg/dL (1.7-2.3); Osmolality Calculated 293 mOsm/kg (285-295); Potassium 3.8 mmol/L (3.5-5.1); Sodium 142 mmol/L (136-145); Total Bilirubin 0.5 mg/dL (0.15-1.2)
[2024-08-03] MEDS: ibuprofen 600 mg Tablet PO (03:14)
[2024-08-03] MEDS: metoprolol tartrate 25 mg Tablet PO (03:54)
--- NOTE | 2024-08-03 07:45 | DCPLANNER ---
messaged heart care for er f/u
== END 2024-08-03 04:32 | disposition home or self-care (01) ==
PROVIDERS: Emergency Provider Physician Assistant
DX: R00.0 Tachycardia, unspecified (principal); R00.2 Palpitations; F17.220 Nicotine dependence, chewing tobacco, uncomplicated
CPT/HCPCS: 36415; 80053; 80306; 83735; 84443; 85025; 93005; 99284; J9999